=== PATIENT | male | born 1935 | race Caucasian/White ===

== ENCOUNTER 2016-10-27 14:15 | Inpatient (IN) | payer MEDICARE, BC ==
--- NOTE | 2016-10-31 06:21 | HISTORY & PHYSICAL ---
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 He has undergone nonoperative treatment for more than a year, including physical therapy, activity modification, oral medication and injection. His symptoms have worsened to the point that it is significantly interferes with his activities of daily living, and he is therefore being taken to the operating room for left total shoulder arthroplasty, and likely reverse shoulder arthroplasty. PAST MEDICAL HISTORY 1. Aortic aneurysm. 2. Prostate cancer. 3. Bifascicular bundle branch block. 4. Hyperlipidemia. 5. Paroxysmal supraventricular tachycardia. 6. Peripheral neuropathy. 7. Right rotator cuff tear. PAST SURGICAL HISTORY 1. Hammertoe surgery. 2. Total knee replacement. 3. Hip replacement. 4. Prostate surgery. 5. Cataract surgery. MEDICATIONS Atorvastatin. Vitamin D supplements. Oxybutynin. ALLERGIES: No known drug allergies. SOCIAL HISTORY: The patient is a nonsmoker and denies alcohol use. He is retired. FAMILY HISTORY: Noncontributory. REVIEW OF SYSTEMS: Negative for chest pain, shortness of breath or unexplained fever or weight loss. Review of systems is otherwise noncontributory. PHYSICAL EXAMINATION GENERAL: Well-appearing senior male in no apparent distress. Alert and oriented x3. HEENT: Atraumatic/normocephalic. EOMI. NECK: Supple without adenopathy. CHEST: Regular rate and rhythm without murmur. LUNGS: Clear to auscultation. ABDOMEN: Soft, nontender. Normoactive bowel sounds. EXTREMITY: He has passive abduction of his left shoulder to 140 degrees. He also has over 140 degrees of forward flexion. In the 90 degree abducted position , he has 90 degrees of external rotation and 70 degrees of internal rotation. There is mild crepitus with range of motion. He has no swelling or deformity and is nontender. He has sensation intact distally to light touch with a 2+ radial pulse. NEUROLOGIC: Nonfocal. IMAGING: Plain radiographs reveal complete loss of joint space of the glenohumeral joint as seen on both the true AP and axillary lateral views. There is no appreciable narrowing of the subacromial space to suggest gross rotator cuff insufficiency. ASSESSMENT: Severe glenohumeral arthroses as noted above. PLAN: The patient will be taken to the operating room for left total shoulder arthroplasty. We discussed the possibility of anatomic shoulder replacement versus reverse shoulder arthroplasty depending on the condition of his rotator cuff intraoperatively. We have also discussed the operation, risks and indications. The risks of the procedure include but are not limited to blood loss or nerve injury, infection, persistent pain or swelling, dislocation of the joint, premature or loosening of the prosthesis. The patient has acknowledged the risks and desires to go ahead and proceed as planned. FLAVIA
[2016-10-31] MEDS ORDERED: TRANEXAMIC ACID 1,000 MG in NORMAL SALINE 100 ML IV SCH ×3 (06:31→11:05)
[2016-10-31] MEDS ORDERED: ceFAZolin/DEXTROSE,ISO 2 GM/50 ML PIGGYBACK IV ONE ×3 (06:31→07:24)
[2016-10-31 06:54] LABS: URINE APPEARANCE CLEAR; URINE BILIRUBIN NEGATIVE (NEGATIVE); URINE BLOOD 10 Ery/uL (1+) (NEGATIVE); URINE COLOR YELLOW; URINE GLUCOSE NORMAL (NEGATIVE); URINE KETONE NEGATIVE (NEGATIVE); URINE MUCUS NONE SEEN (Up to 25%); URINE NITRITE NEGATIVE (NEGATIVE); URINE PROTEIN NEGATIVE (NEG - TRACE); URINE RBC NONE SEEN (0-5/hpf); URINE SQUAMOUS EPITHELIAL CELL 0-5/hpf (<= 15/hpf); URINE UROBILINOGEN 0.2mg/dL (Normal) (NEG-1mg/dL); URINE WBC 0-4/hpf (0-4/hpf)
[2016-10-31 06:55] LABS: URINE LEUKOCYTE ESTERASE 25 WBC/uL (1+) (NEGATIVE)
[2016-10-31] MEDS ORDERED: MIDAZOLAM HCL 2 MG/2 ML VIAL ONE (06:58)
[2016-10-31] MEDS ORDERED: FAMOTIDINE IN SALINE, ISO-OSM 50 ML IV ONE (06:58)
[2016-10-31] MEDS ORDERED: ceFAZolin 1 GM/10 ML VIAL ONE (06:59)
[2016-10-31] MEDS ORDERED: TRANEXAMIC ACID 1,000 MG/10 ML VIAL IV ONE (06:59)
[2016-10-31] MEDS ORDERED: ROPIVACAINE HCL 0.5% 30 ML ONE ×3 (07:02→07:51)
[2016-10-31] MEDS ORDERED: MIDAZOLAM HCL 2 MG/2 ML SYR IV ONE ×2 (07:23→07:24)
[2016-10-31] MEDS ORDERED: LIDOCAINE HCL 1% 20 ML VIAL SUBCUT ONE ×3 (07:23→11:05)
[2016-10-31] MEDS ORDERED: MORPHINE SULFATE/PF 10 MG/10 ML VIAL ONE (07:29)
[2016-10-31] MEDS ORDERED: KETOROLAC TROMETHAMINE 30 MG/ML VIAL ONE (07:29)
[2016-10-31] MEDS ORDERED: NORMAL SALINE FLUSH 10 ML ONE (07:29)
[2016-10-31] MEDS ORDERED: FAMOTIDINE IN SALINE, ISO-OSM 20 MG/50 ML PIGGYBACK IV SCH (07:30)
[2016-10-31] MEDS ORDERED: BUPIVACAINE/EPI 0.25% 1 VIAL VIAL ONE (07:30)
[2016-10-31] MEDS ORDERED: ETOMIDATE 40 MG/20 ML VIAL IV ONE (07:58)
[2016-10-31] MEDS ORDERED: FENTANYL 100 MCG/2 ML VIAL ONE ×3 (07:58→10:25)
[2016-10-31] MEDS ORDERED: ROCURONIUM BROMIDE 50 MG/5 ML VIAL IV ONE ×2 (07:58→10:25)
[2016-10-31] MEDS ORDERED: LACTATED RINGERS 1,000 ML IV SCH ×4 (08:00→12:00)
[2016-10-31] MEDS ORDERED: hydrALAZINE HCL 20 MG/ML VIAL ONE (10:34)
[2016-10-31] MEDS ORDERED: EPHEDrine SULFATE 50 MG/ML VIAL ONE (10:41)
[2016-10-31] MEDS ORDERED: SUGAMMADEX SODIUM 200 MG/2 ML VIAL IV ONE (10:59)
[2016-10-31] MEDS ORDERED: ONDANSETRON HCL 4 MG/2 ML VIAL ONE (10:59)
[2016-10-31] MEDS ORDERED: ONDANSETRON HCL 4 MG/2 ML VIAL IV PRN ×2 (11:05→12:23)
[2016-10-31] MEDS ORDERED: HYDROmorphone HCL 1 MG/ML SYR IV PRN (11:05)
[2016-10-31] MEDS ORDERED: FENTANYL 100 MCG/2 ML VIAL IV PRN (11:05)
[2016-10-31] MEDS ORDERED: MORPHINE SULFATE 10 MG/ML SYR IV PRN (11:05)
--- NOTE | 2016-10-31 11:07 | PROCEDURE NOTE: Orthopedics ---
Orthopedic Procedure note - Brief Operative Note Date of procedure: 10/31/16 Pre-Op Diagnosis: Severe glenohumeral arthrosis left shoulder Post-op diagnosis: same Procedure: Reverse TSA Implants: [employer],ORTHO MOTION. [facility] SHOULDER/SPALIA. 36MM SMALL. EXP-. [id number]. GLENOID SMALL METAL BACK. EXP 09/13/2021. [id number]. BONE SCREW, SELF TAPPING. 6.5MM H=25MM. REF [id number](2 USED). EXP 11/13/2020. [id number]. REVERSE [id number]. EXP06/15/2021. STERILR [id number] Anesthesia Type: General Physician: ARTURO PRITCHETT Estimated Blood Loss: 300 Specimen/Pathology: none sent Sponge/instrument count: correct X-ray/Fluoroscopy: No Condition: stable Disposition: PACU
[2016-10-31] MEDS ORDERED: ACETAMINOPHEN 325 MG TABLET PO PRN (12:23)
[2016-10-31] MEDS ORDERED: DEXTROSE 5% LACTATED RINGERS 1,000 ML IV SCH (13:00)
[2016-10-31] MEDS: ceFAZolin 1 GM in NORMAL SALINE MINI-BAG+ 100 ML IV SCH ×2 (13:51→21:33)
[2016-10-31] MEDS: HYDROcodone/APAP 5/325 MG 1 TAB TABLET PO PRN ×3 (15:40→22:25)
--- NOTE | 2016-10-31 17:52 | OPERATIVE REPORT ---
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 PROCEDURE PERFORMED: Reverse shoulder arthroplasty of the left shoulder. INDICATIONS FOR PROCEDURE: Patient is an 81-year-old male with a long standing history of glenohumeral arthroses of the left shoulder who has failed correction nonoperative management including injection, anti-inflammatory medications, physical therapy and activity modification. Due to his ongoing symptoms as well as his findings of very clearly severe arthroses, he is taken to the operating room for total shoulder arthoplasty. Due to the fact that he has a chronic rotator cuff tear on the right side, and we suspected the possibility of rotator cuff disease on the left as well, we decided to proceed with reverse shoulder arthroplasty. SUMMARY: After informed consent was obtained, the patient was taken to the operating room where he was placed in the beach-chair position under general anesthesia. After adequate anesthesia was achieved, the left shoulder and upper extremity were then prepped and draped in the usual sterile fashion, the subcutaneous tissue was injected with 0.25% Marcaine with epinephrine, and then a gentle curved incision was performed extending from the lateral aspect of the corticoid process to a point near the deltoid insertion. The underlying soft tissue was gently but sharply dissected to reveal the underlying deltoid and pectoral interval. The cephalic vein was identified, and gently retracted laterally. The clavipectoral fascia was then incised, and the conjoint tendon was retracted medially, at which time a self retaining retractor was placed. The subscapularis tendon was identified after which the axillary nerve was palpated for identification and protection. A hemostat was placed underneath the tendon, and the tendon was incised about 1 cm from its humeral attachment. Then #2 Fiberwire sutures were then placed on the medial aspect of the tendon, and it was retracted laterally. The humeral head was then exposed and the enry point was established using an awl. The intramedullary broach was then driven into the proximal humerus and the cutting guide was positioned for resection. The guide was then secured with pins ant the intramedullary broach was removed. The humeral cut was then performed using an oscillating saw. The cutting guide was removed and osteophytes were removed using a rongeur. The proximal humerus was then retracted to expose the glenoid. A capsulotomy was performed first anteriorly, and then around the rest of the glenoid. The glenoid was then exposed, and the template for the glenoid component was positioned onto the glenoid. A K-wire was then driven through the guide and through the face of the glenoid. The glenoid was then reamed down to bleeding bone. The wound was then irrigated with copious amounts of sterile saline, and then the 36-mm glenoid component was selected. The central lug hole was drilled , and then the glenoid plate was tapped into placed. The superior drill hole was then drilled, after which the depth gauge was used to measure length and the superior screw was driven into the glenoid. It was not tightened, and then the inferior hole was drilled, after which the inferior screw was also placed. Then both screws were tightened. The wound was then irrigated once again, and then the glenosphere was positioned onto the glenoid plate. The glenosphere was then secured with the central set screw. Attention was then focused back on the proximal humerus, at which time it was sequentially broached to a size 7 after which the broach was left in place in order to use the proximal humeral reamer. The reaming was performed by hand, and then once again the wound was irrigated with copious amounts of sterile saline. The broach was then removed, and the implant was tapped into place. We initially trialed a size 0 polyethylene liner, which actually yielded good stability and range of motion, but there was a little bit of opening with extension and external rotation. Therefor we decided to trial a +3 liner. The + 3 liner actually did fit a little bit better and was even more secure; therefore , that liner was selected. Using that construct, we could abduct the patient's arm all the way up to his head. In the 90 degree abducted position he had 90 degrees of external rotation and greater than 90 degrees of internal rotation. He also had no impingement with adduction or rotation of the shoulder. The trial insert was then removed, and the posterior, superior and inferior portions of the joint capsule were injected with the orthopedic anesthetic mixture. The wound was then irrigated once again, and then the polyethylene liner was tapped into place. Once again the shoulder was tested for range of motion and stability and found to have the same findings as the trial. We irrigated the joint one more time under pulsatile lavage, and then the subscapularis tendon was repaired side to side using the #2 Fiberwire, and then the repair was augmented using #1 Vicryl in a running fashion. A deep drain was then placed and then a deltopectoral interval was then closed with 0 Vicryl in a running fashion. The subcutaneous tissue was closed with 2-0 Vicryl, and then the skin was closed with skin lilia. Skin and subcutaneous tissue were then injected locally using 0.25% Marcaine with epinephrine and then a sterile gauze dressing was then applied. The patient tolerated the procedure well, was placed into a sling and was taken to the recovery room in stable condition. ESTIMATED BLOOD LOSS: 300 mL. FLUIDS: Lactated ringers 3000 mL. MTDD
[2016-10-31] MEDS: DOCUSATE SODIUM 100 MG CAPSULE PO SCH (21:15)
[2016-10-31] MEDS: CELECOXIB 100 MG CAPSULE PO SCH (21:15)
[2016-11-01 05:53] LABS: BASOPHILS 0.3 % (0.0-2.0); EOSINOPHILS 1.8 % (0.0-6.0); EOSINOPHILS# 0.1 X 10^3uL (0.0-0.4); HEMATOCRIT 35.2 % (42.0-54.0); HEMOGLOBIN 11.7 g/dL (14.0-18.0); LYMPHOCYTES 8.6 % (20.0-40.0); LYMPHOCYTES# 0.6 X 10^3uL (0.8-3.8); MEAN CELL VOLUME 90.3 fL (80.0-100.0); MEAN CORPUS. HGB CONCENTRATION 33.2 g/dL (32.0-36.0); MEAN CORPUSCULAR HEMOGLOBIN 29.9 pg (29.0-35.0); MEAN PLATELET VOLUME 8.6 fL (7.4-10.4); MONOCYTES 10.4 % (2.0-10.0); MONOCYTES# 0.7 X 10^3uL (0.2-1.0); NEUTROPHILS 78.9 % (54.0-75.0); NEUTROPHILS# 5.2 X 10^3uL (2.6-6.7); RED BLOOD COUNT 3.9 X 10^6uL (4.20-6.10); RED CELL DISTRIBUTION WIDTH 12.8 % (11.5-14.5); WHITE BLOOD COUNT 6.6 X 10^3uL (3.9-10.7)
[2016-11-01] MEDS: ceFAZolin 1 GM in NORMAL SALINE MINI-BAG+ 100 ML IV SCH (06:03)
[2016-11-01 06:36] VITALS: BP 138/64; PULSE 59; RESP 12; TEMP 98; O2SAT 96
--- NOTE | 2016-11-01 08:13 | RADIOLOGY REPORT ---
Two views of the left shoulder are compared with prior films dated 06/30/2016. There has been interval reverse shoulder arthroplasty. The components appear intact and in appropriate position. No other change is identified. IMPRESSION: Unremarkable left shoulder arthroplasty. [facility]
[2016-11-01] MEDS: CELECOXIB 100 MG CAPSULE PO SCH (08:27)
[2016-11-01] MEDS: DOCUSATE SODIUM 100 MG CAPSULE PO SCH (08:28)
[2016-11-01] MEDS ORDERED: OXYBUTYNIN CHLORIDE ER 5 MG TABLET PO SCH (09:00)
[2016-11-01] MEDS ORDERED: CHOLECALCIFEROL 1,000 UNIT CAPSULE PO SCH (09:00)
[2016-11-01] MEDS ORDERED: ATORVASTATIN CALCIUM 10 MG TABLET PO SCH (09:00)
[2016-11-01] MEDS ORDERED: CYANOCOBALAMIN 1,000 MCG TABLET PO SCH (09:00)
--- NOTE | 2016-11-01 09:54 | PROGRESS NOTE: Orthopedics ---
Orthopedic PN Subjective - Subjective Principal Diagnosis: Post op L reverse shoulder arthroplasty Post-op Day: 1 Interval history: Pt feels well this morning. Almost no pain. Ortho PN Objective Exam - Latest Vital Signs and I&O Latest Vital Signs/I&O: Vital Signs Temp 36.6 C 11/01/16 06:34 Pulse 59 L 11/01/16 06:34 Resp 12 11/01/16 06:34 BP 138/64 11/01/16 06:34 Pulse Ox 96 11/01/16 06:34 Intake & Output 10/31/16 11/01/16 11/01/16 17:59 05:59 17:59 Intake Total 3050 2523 Output Total 4100 1480 Balance -1050 1043 Weight 72.575 kg Intake: IV 3050 1283 Right Wrist 3050 1283 Oral 1240 Output: Drainage 150 Left Shoulder 150 Urine 3800 1300 Uretheral (Yun) 1000 Emesis 100 30 Other 200 Other: Urine Appearance Clear Clear Urine Color Pale Straw Uretheral (Yun) Pale Yellow Stool Size Moderate Stool Characteristics Formed Voiding Method Indwelling Catheter Indwelling Catheter # Bowel Movements 1 - Post-Operative Exam Dressing Status: dry & intact Drainage Amount: none Active Motor: other (Deltoid works well.) Sensation: intact - Lab Labs: Laboratory Last Values WBC 6.6 X 10^3uL (3.9-10.7) 11/01/16 05:15 RBC 3.90 X 10^6uL (4.20-6.10) L 11/01/16 05:15 Hgb 11.7 g/dL (14.0-18.0) L 11/01/16 05:15 Hct 35.2 % (42.0-54.0) L 11/01/16 05:15 MCV 90.3 fL (80.0-100.0) 11/01/16 05:15 MCH 29.9 pg (29.0-35.0) 11/01/16 05:15 MCHC 33.2 g/dL (32.0-36.0) 11/01/16 05:15 RDW 12.8 % (11.5-14.5) 11/01/16 05:15 Plt Count 133 X 10^3uL (130-440) 11/01/16 05:15 MPV 8.6 fL (7.4-10.4) 11/01/16 05:15 Neutrophils % 78.9 % (54.0-75.0) H 11/01/16 05:15 Lymphocytes % 8.6 % (20.0-40.0) L 11/01/16 05:15 Eosinophils % 1.8 % (0.0-6.0) 11/01/16 05:15 Basophils % 0.3 % (0.0-2.0) 11/01/16 05:15 Neutrophils # 5.2 X 10^3uL (2.6-6.7) 11/01/16 05:15 Lymphocytes # 0.6 X 10^3uL (0.8-3.8) L 11/01/16 05:15 Monocytes 10.4 % (2.0-10.0) H 11/01/16 05:15 Monocytes # 0.7 X 10^3uL (0.2-1.0) 11/01/16 05:15 Eosinophils # 0.1 X 10^3uL (0.0-0.4) 11/01/16 05:15 Basophils # 0.0 X 10^3uL (0.0-0.1) 11/01/16 05:15 Urine Color Yellow 10/31/16 06:35 Urine Appearance Clear 10/31/16 06:35 Urine pH 6.0 (5-7) 10/31/16 06:35 Ur Specific Clay 1.010 (0.001-1.035) 10/31/16 06:35 Urine Protein Negative (NEG - TRACE) 10/31/16 06:35 Urine Ketones Negative (NEGATIVE) 10/31/16 06:35 Urine Blood 10 willie/ul (1+) (NEGATIVE) A 10/31/16 06:35 Urine Nitrate Negative (NEGATIVE) 10/31/16 06:35 Urine Bilirubin Negative (NEGATIVE) 10/31/16 06:35 Urine Urobilinogen 0.2mg/dl (normal) (NEG-1mg/dL) 10/31/16 06:35 Ur Leukocyte Esterase 25 wbc/ul (1+) (NEGATIVE) A 10/31/16 06:35 Urine RBC None seen (0-5/hpf) 10/31/16 06:35 Urine WBC 0-4/hpf (0-4/hpf) 10/31/16 06:35 Ur Squamous Epith Cells 0-5/hpf (<= 15/hpf) 10/31/16 06:35 Urine Bacteria 10-20 organisms/hpf (<10/hpf) 10/31/16 06:35 Urine Mucus None seen (Up to 25%) 10/31/16 06:35 Urine Glucose Normal (NEGATIVE) 10/31/16 06:35 Assessment and Plan-Ortho - Date of Encounter Date of Encounter: 11/01/16 (1) Status post reverse arthroplasty of left shoulder Assessment and plan: Doing very well. Plan: Discharge to home. Follow up next week at ortho clinic. Quality Questions - VTE Prophylaxis Assessment VTE Present on Admission?: No Patient at risk for venous thromboembolism?: Yes VTE Risk Level: Very Low Risk Pharmaceutical VTE prophylaxis contraindication reason: not indicated Mechanical VTE prophylaxis contraindication reason: not indicated
[2016-11-01] MEDS ORDERED: LORazepam 0.5 MG TABLET ONE (12:38)
--- NOTE | 2016-11-03 14:07 | DISCHARGE SUMMARY ---
DATE OF ADMISSION: 10/31/16 DATE OF DISCHARGE: 11/01/16 ADMITTING DIAGNOSIS: Severe glenohumeral arthrosis of the left shoulder. HISTORY OF PRESENT ILLNESS: Please refer to the typed history and physical examination. HOSPITAL COURSE: The patient was admitted to the hospital and on the date of admission was taken to the operating room at which time he underwent reverse shoulder arthroplasty of the left shoulder. The patient tolerated the procedure very well and by the following morning was doing quite well with minimal pain. He was then discharged in stable condition. FINAL DIAGNOSIS: Severe glenohumeral arthrosis of the left shoulder. OPERATION/PROCEDURES: Reverse shoulder arthroplasty using the Mclean shoulder system. DISCHARGE MEDICATIONS: Please refer to the hospital discharge medication reconciliation form. DISPOSITION/RECOMMENDATIONS 1. The patient is discharged to home. 2. He may continue to do active assistive range of motion of the left shoulder but avoid external rotation past the neutral position. 3. He should leave the dressing in place until he follows up with the orthopedic clinic. If the dressing does become bothersome he may remove it postoperative day number 5. Also if that is the case he may get the incision wet in the shower at that time. 4. He should follow with the orthopedic clinic approximately 10 days postop for reevaluation and staple removal. FLAVIA
== END 2016-11-01 10:02 | disposition home or self-care (01) | DRG 483 ==
LOC: IN 10-31 06:00
PROVIDERS: ADMIT Orthopaedic Surgery; ATTEND Orthopaedic Surgery
PROC: 0RRK00Z Replacement of Left Shoulder Joint with Reverse Ball and Socket Synthetic Substitute, Open Approach (ICD-10-PCS; principal; 2016-10-31)
DX: M19.012 Primary osteoarthritis, left shoulder (principal); I45.19 Other right bundle-branch block; E78.5 Hyperlipidemia, unspecified; I71.4 Abdominal aortic aneurysm, without rupture; G62.9 Polyneuropathy, unspecified; I47.1 Supraventricular tachycardia; Z85.46 Personal history of malignant neoplasm of prostate; Z79.899 Other long term (current) drug therapy
CPT/HCPCS: 36415; 64415; 81001; 85025; 87077; 87086; 87186; 96366; J0171; J0360; J0690; J1885; J2250; J2405; J2795

== ENCOUNTER 2016-11-06 08:04 | Emergency (ER) | payer MEDICARE, BC ==
--- NOTE | 2016-11-06 09:14 | ER PHYSICIAN DOCUMENTATION ---
Physician Documentation [facility] Name:Chrissy Smith Age:81 yrs Sex:Male :1935 Arrival Date:11/06/2016 Time:08:04 Bed6 Private MD:Chary Kulkarni ED, Scott Disposition: 11/06/16 08:53 Discharged to Home/Self Care. Impression: Edema. - Condition is Good. - Discharge Instructions: PERIPHERAL EDEMA, Unilateral. - Medical Reconciliation form form. - Follow up: Edgar Cordero MD; When: 2 - 3 days; Reason: Recheck today's complaints. - Problem is new. - Symptoms are unchanged. HPI: 11/06 08:48 This 81 yrs old Male presents to ER via Private Vehicle with complaints of sc Hand Swelling. 08:48 The patient or guardian reports swelling. The complaints affect the left arm and left sc hand. Context: The problem was sustained at home, resulted from post op shoulder replacement, no pain or paresthesias. Onset: The symptom(s)/episode began/occurred 6 day(s) ago. Associated signs and symptoms: Pertinent negatives: fever, nausea, numbness distally, tingling distally. Historical: - Allergies: No known drug Allergies; - Home Meds: 1. Bactrim DS Oral 2. Crestor oral - PMHx: OSTEOARTHRITIS; Prostate Cancer; RLS; Nonrheumatic aortic Valve Insufficiency; Paroxysmal Supraventricular Tachycardia; pseudophakia; shoulder; - PSHx: KNEE SURGERY; HIP SURGERY; Hammer Toe Surgery; Prostate Surgery; - Tetanus: < 10 years. - Ebola Screening: : Patient denies exposure to infectious person. Patient denies travel to an Ebola-affected area in the 21 days before illness onset. . - Social history: Smoking status: Patient states was never smoker of tobacco. Patient/guardian denies using alcohol, marijuana. ROS: 08:51 Constitutional: Negative for fever, chills, and weight loss. sc Eyes: Negative for injury, pain, redness, and discharge. Neck: Negative for injury, pain, and swelling. Cardiovascular: Negative for chest pain, palpitations, and edema. Respiratory: Negative for shortness of breath, cough, wheezing, and pleuritic chest pain. Back: Negative for injury and pain. Skin: Negative for injury, rash, and discoloration. 08:51 Neuro: Negative for headache, weakness, numbness, tingling, and seizure. sc 08:51 MS/extremity: Positive for swelling, Negative for erythema, pain, paresthesias, tenderness. Exam: Constitutional: This is a well developed, well nourished patient who is awake, alert, and in no acute distress. Head/Face: Normocephalic, atraumatic. Eyes: Pupils equal round and reactive to light, extra-ocular motions intact. Lids and lashes normal. Conjunctiva and sclera are non-icteric and not injected. Cornea within normal limits. Periorbital areas with no swelling, redness, or edema. ENT: Nares patent. No nasal discharge, no septal abnormalities noted. Tympanic membranes are normal and external auditory canals are clear. Oropharynx with no redness, swelling, or masses, exudates, or evidence of obstruction, uvula midline. Mucous membranes moist. Neck: Trachea midline, no thyromegaly or masses palpated, and no cervical lymphadenopathy. Supple, full range of motion without nuchal rigidity, or vertebral point tenderness. No meningismus. Chest/axilla: Normal chest wall appearance and motion. Nontender with no deformity. No lesions are appreciated. Back: No spinal tenderness. No costovertebral tenderness. Full range of motion. 08:51 Skin: Warm, dry with normal turgor. Normal color with no rashes, no lesions, and no sc evidence of cellulitis. 08:51 Musculoskeletal/extremity: Extremities: grossly normal except: swelling, ROM: intact in all extremities, Circulation is intact in all extremities. Sensation intact. DVT Exam: no pain, no tenderness, negative Homans' sign noted on exam, no appreciated bluish discoloration, no erythema, no increased warmth. 08:53 Skin: Exam negative for acute changes. sc Vital Signs: 08:10 BP 118 / 63; Pulse 59; Resp 18; Temp 98.3(O); Pulse Ox 92% on R/A; Weight 72.57 kg (R); arc Height 6 ft. 0 in. (182.88 cm) (R); Pain 0/10; 08:10 Body Mass Index 21.70 (72.57 kg, 182.88 cm) arc MDM: 08:40 Patient medically screened. sc 08:52 Differential diagnosis: nl postop, doubt dvt. Data reviewed: vital signs, nurses notes, wi old medical records, and as a result, I will discharge patient. Physician consultation: Edgar Cordreo MD was called at 08:52, was contacted at 08:52, regarding patient's condition, and will see patient in office, in 2-3 days. Dispensed Medications: No medications were administered Signatures: Leigha Wheatley RN RN st Chew, Scott, MD MD wi
--- NOTE | 2016-11-06 09:14 | ER NURSING DOCUMENTATION ---
Nurse's Notes [facility] Name:Chrissy Smith Age:81 yrs Sex:Male :1935 Arrival Date:11/06/2016 Time:08:04 Bed6 Private MD:Chary Kulkarni Diagnosis:Edema Presentation: 11/06 08:15 Presenting complaint: Patient states: pt had his left shoulder replaced Monday and is st concerned that his left hand is swollen. pt has no pain in his hand or arm. Transition of care: Home. Notified ED Physician of Dr. Puentes notified. 08:15 Acuity: LAUREL 5 st 08:15 Method Of Arrival: Private Vehicle st Triage Assessment: 08:19 General: Appears in no apparent distress, Behavior is cooperative. Pain: Denies pain. st Cardiovascular: No deficits noted. Respiratory: No deficits noted. GI: No deficits noted. Musculoskeletal: Swelling present in left hand and left arm. Historical: - Allergies: No known drug Allergies; - Home Meds: 1. Bactrim DS Oral 2. Crestor oral - PMHx: OSTEOARTHRITIS; Prostate Cancer; RLS; Nonrheumatic aortic Valve Insufficiency; Paroxysmal Supraventricular Tachycardia; pseudophakia; shoulder; - PSHx: KNEE SURGERY; HIP SURGERY; Hammer Toe Surgery; Prostate Surgery; - Tetanus: < 10 years. - Ebola Screening: : Patient denies exposure to infectious person. Patient denies travel to an Ebola-affected area in the 21 days before illness onset. . - Social history: Smoking status: Patient states was never smoker of tobacco. Patient/guardian denies using alcohol, marijuana. Screenin:20 Infectious Disease Risk None. Abuse screen: Denies threats or abuse. Denies injuries st from another. pt feels safe at home. Nutritional screening: No deficits noted. Vital Signs: 08:10 BP 118 / 63; Pulse 59; Resp 18; Temp 98.3(O); Pulse Ox 92% on R/A; Weight 72.57 kg (R); arc Height 6 ft. 0 in. (182.88 cm) (R); Pain 0/10; 08:10 Body Mass Index 21.70 (72.57 kg, 182.88 cm) arc ED Course: 08:05 Patient arrived in ED. arc 08:10 Chary Kulkarni MD is Private Physician. arc 08:15 Twombly, Summer, RN is Primary Nurse. st 08:[address] 08:20 Valuables Remains with patient. Elevated left arm. st 08:40 Davion Puentes MD is Attending Physician. sc 08:53 Edgar Cordero MD is Referral Physician. sc 09:12 Pawan wrap to left arm and left hand. st Administered Medications: No medications were administered Outcome: 08:53 Discharge ordered by . sc 09:12 Discharged to home ambulatory. st 09:12 Condition: stable 09:12 Discharge instructions given to patient, Instructed on discharge instructions, follow up and referral plans. Ortho Care 09:13 Patient [address] the ED. st 11/07 11:09 Discharge F/U Call: Unable to reach: no answer st Signatures: Leigha Wheatley RN RN Davion Puentes MD MD hi Shima Puentes, Reg Reg arc
== END 2016-11-06 09:13 | disposition home or self-care (01) ==
LOC: ER 08:04
DX: R60.0 Localized edema (principal); M79.89 Other specified soft tissue disorders; Z98.890 Other specified postprocedural states; Z96.612 Presence of left artificial shoulder joint; M19.90 Unspecified osteoarthritis, unspecified site; Z85.46 Personal history of malignant neoplasm of prostate; I35.1 Nonrheumatic aortic (valve) insufficiency; Z79.899 Other long term (current) drug therapy
CPT/HCPCS: 99282; 99283